=== PATIENT | male | born 1945 | race Caucasian/White ===

== ENCOUNTER 2023-08-15 13:39 | Inpatient (IN) | payer MEDICARE, OTHER ==
[~2023-08-15] VITALS: Ht 162.6 cm; Wt 93.4 kg
[2023-08-15] MEDS ORDERED: CEFTRIAXONE 1GM BAG (ER ONLY) 50 ML IV ONE ×2 (14:58→15:00)
[2023-08-15] MEDS ORDERED: VANCOMYCIN 1 GM /D5W 250 ML PB IV ONE (14:59)
[2023-08-15] MEDS ORDERED: IPRATROPIUM NEB FS 0.5 MG/2.5 ML AMPUL.NEB NEB ONE ×2 (15:00→17:00)
[2023-08-15] MEDS ORDERED: VANCOMYCIN 1 GM in IV D5W 250 ML IV ONE (15:00)
[2023-08-15] MEDS ORDERED: ALBUTEROL FS 2.5 MG/3 ML VIAL.NEB NEB ONE ×2 (15:00→17:00)
[2023-08-15] MEDS ORDERED: IV NS 0.9% 1,000 ML BAG IV ONE (15:00)
[2023-08-15] MEDS ORDERED: ALBUTEROL FS 2.5 MG/3 ML VIAL.NEB ONE ×2 (15:06→18:00)
[2023-08-15] MEDS ORDERED: IPRATROPIUM NEB FS 0.5 MG/2.5 ML AMPUL.NEB ONE ×2 (15:06→18:00)
[2023-08-15 15:12] VITALS: O2SAT 97
[2023-08-15 15:15] LABS: BASOPHILS % (AUTO) 0.5 % (0.0-2.0); EOSINOPHILS % (AUTO) 0.2 % (0.0-6.0); HEMATOCRIT 47 % (39-51); HEMOGLOBIN 15.5 g/dL (13.5-17.5); LYMPHOCYTES # (AUTO) 1.4 K/uL (0.8-4.8); LYMPHOCYTES % (AUTO) 17.6 % (20.0-44.0); MEAN CORPUSCULAR HEMOGLOBIN 32 PG (26.0-33.0); MEAN CORPUSCULAR HGB CONC 33 g/dl (31.0-36.0); MEAN CORPUSCULAR VOLUME 96 fL (80-96); MONOCYTES # (AUTO) 0.8 K/uL (0.1-1.30); MONOCYTES % (AUTO) 9.6 % (2.0-12.0); NEUTROPHILS # (AUTO) 5.9 K/uL (1.8-8.9); NEUTROPHILS % (AUTO) 72.1 % (43.0-81.0); PLATELET COUNT (AUTO) 243 K/uL (150-450); RED BLOOD CELL COUNT(AUTO) 4.88 MIL/uL (4.5-6.0); RED CELL DISTRIBUTION WIDTH 13.8 % (11.5-15.0); WHITE BLOOD COUNT (AUTO) 8.2 K/uL (4.3-11.0)
[2023-08-15 15:23] VITALS: O2SAT 98
[2023-08-15] MEDS ORDERED: THEO300T46 PO (15:27)
[2023-08-15] MEDS ORDERED: DOCU100C36 PO (15:27)
[2023-08-15] MEDS ORDERED: ASPI-1169 PO (15:27)
[2023-08-15] MEDS ORDERED: MONT10TA22 PO (15:27)
[2023-08-15] MEDS ORDERED: ALBU18HF2 IH (15:27)
[2023-08-15] MEDS ORDERED: GABA300C PO (15:27)
[2023-08-15] MEDS ORDERED: CYAN500T9 PO (15:27)
[2023-08-15] MEDS ORDERED: FLUT1BLS6 IH (15:27)
[2023-08-15 15:30] LABS: CALCIUM, SERUM 8.9 mg/dL (8.5-10.1); CARBON DIOXIDE 30 mmol/L (21-32); CHLORIDE 101 mmol/L (98-107); CREATININE 1.1 mg/dL (0.6-1.3); GLUCOSE 115 mg/dL (74-106); POTASSIUM 4.4 mmol/L (3.5-5.1); SODIUM SERUM 137 mmol/L (136-145); UREA NITROGEN, BLOOD 13 mg/dL (7-18)
[2023-08-15 15:33] LABS: INR 0.99 (0.91-1.10); PARTIAL THROMBOPLASTIN TIME 32.5 SEC (24.3-34.3); PROTHROMBIN TIME 10.5 SECS (9.2-11.1)
[2023-08-15 15:36] LABS: ALANINE AMINOTRANSFERASE 20 U/L (12-78); ALBUMIN 3.6 g/dL (3.4-5.0); ALKALINE PHOSPHATASE 71 U/L (46-116); ASPARTATE AMINOTRANSFERASE 14 U/L (15-37); BILIRUBIN,DIRECT 0.1 mg/dL (0.0-0.2); BILIRUBIN,TOTAL 0.4 mg/dL (0.2-1.0); TOTAL PROTEIN, SERUM 8.1 g/dL (6.4-8.2)
[2023-08-15 15:50] LABS: LACTIC ACID 0.9 mmol/L (0.4-2.0)
[2023-08-15 16:45] LABS: APPEARANCE,URINE CLEAR (CLEAR); BILIRUBIN,URINE NEGATIVE (NEGATIVE); BLOOD, URINE NEGATIVE Ery/uL (NEGATIVE); COLOR,URINE YELLOW (YELLOW); KETONES,URINE NEGATIVE (NEGATIVE); LEUKOCYTE ESTERASE ,URINE NEGATIVE (NEGATIVE); NITRITE, URINE NEGATIVE (NEGATIVE); PH,URINE 5.5 (5.0-8.0); PROTEIN,URINE TRACE mg/dl (NEGATIVE); UGLUCOSE NEGATIVE (NEGATIVE); UROBILINOGEN,URINE 0.2 EU/dL (0.2)
[2023-08-15 16:57] LABS: ADD URINE CULTURE NO; BACTERIA,URINE None seen /HPF (None Seen); MUCUS,URINE Few /LPF (None Seen); RBC,URINE 0-2 /HPF (0-2); SQUAMOUS EPITHELIAL CELL,UR 0-2 /HPF (None Seen); WBC,URINE 0-2 /HPF (0-3)
[2023-08-15] MEDS: LEVOFLOXACIN 500 MG /D5W 100ML 500 MG in PREMIX 1 EA IV SCH (17:00)
[2023-08-15] MEDS ORDERED: ACETAMINOPHEN 325 MG TABLET PO PRN (17:00)
[2023-08-15] MEDS ORDERED: MAGNESIUM HYDROXIDE 30 ML UDC PO PRN (17:00)
[2023-08-15] MEDS ORDERED: ONDANSETRON HCL/PF 4 MG/2 ML VIAL IVP PRN ×2 (17:00→19:00)
[2023-08-15] MEDS ORDERED: IPRATROPIUM NEB FS 0.5 MG/2.5 ML AMPUL.NEB NEB PRN (17:00)
[2023-08-15] MEDS ORDERED: Z GUARD REMEDY 4 OZ OINT TP PRN (17:00)
[2023-08-15] MEDS ORDERED: ZOLPIDEM TARTRATE 5 MG TABLET PO PRN (17:00)
[2023-08-15] MEDS ORDERED: ALBUTEROL FS 2.5 MG/3 ML VIAL.NEB NEB PRN (17:00)
[2023-08-15] MEDS ORDERED: MAG HYDROX/AL HYDROX/SIMETH 30 ML UDC PO PRN (17:00)
[2023-08-15] MEDS ORDERED: LEVOFLOXACIN 500 MG /D5W 100ML 100 ML IV ONE (17:53)
[2023-08-15 18:00] VITALS: O2SAT 97
[2023-08-15 18:15] VITALS: O2SAT 99
[2023-08-15] MEDS: ENOXAPARIN SODIUM 40 MG/0.4 ML DISP.SYRIN SQ SCH (19:00)
[2023-08-15] MEDS ORDERED: ENOXAPARIN SODIUM 40 MG/0.4 ML DISP.SYRIN SQ ONE (19:03)
[2023-08-15] MEDS: GABAPENTIN 300 MG CAPSULE PO SCH (21:31)
[2023-08-15] MEDS: methylPREDNISolone SOD SUCC 40 MG/ML VIAL IV SCH (21:31)
[2023-08-16] MEDS: methylPREDNISolone SOD SUCC 40 MG/ML VIAL IV SCH ×4 (05:19→21:30)
[2023-08-16 05:48] VITALS: O2SAT 99
[2023-08-16 06:19] VITALS: O2SAT 99
[2023-08-16 06:58] LABS: BASOPHILS % (AUTO) 0.2 % (0.0-2.0); HEMATOCRIT 43 % (39-51); HEMOGLOBIN 14.4 g/dL (13.5-17.5); LYMPHOCYTES % (AUTO) 21.7 % (20.0-44.0); MEAN CORPUSCULAR HEMOGLOBIN 33 PG (26.0-33.0); MEAN CORPUSCULAR HGB CONC 34 g/dl (31.0-36.0); MEAN CORPUSCULAR VOLUME 96 fL (80-96); MONOCYTES # (AUTO) 0.1 K/uL (0.1-1.30); MONOCYTES % (AUTO) 1.3 % (2.0-12.0); NEUTROPHILS # (AUTO) 3.5 K/uL (1.8-8.9); NEUTROPHILS % (AUTO) 76.8 % (43.0-81.0); PLATELET COUNT (AUTO) 207 K/uL (150-450); RED BLOOD CELL COUNT(AUTO) 4.44 MIL/uL (4.5-6.0); RED CELL DISTRIBUTION WIDTH 13.6 % (11.5-15.0); WHITE BLOOD COUNT (AUTO) 4.6 K/uL (4.3-11.0)
[2023-08-16 07:21] LABS: CALCIUM, SERUM 8.7 mg/dL (8.5-10.1); CREATININE 1.2 mg/dL (0.6-1.3); PHOSPHORUS 3.8 mg/dL (2.5-4.9); POTASSIUM 4.8 mmol/L (3.5-5.1)
[2023-08-16 08:00] VITALS: BP 115/55; TEMP 98.2; O2SAT 95
[2023-08-16] MEDS ORDERED: THEOPHYLLINE ANHYDROUS 100 MG CAP.ER.24H PO SCH (09:00)
[2023-08-16 09:13] LABS: ABG BASE EXCESS -0.6 mmol/L; ABG OXYGEN SATURATION 98.9 % (92.0-98.5); ABG PCO2 68.2 mmHg (35.0-45.0); ABG PH 7.243 (7.350-7.450); ABG TOTAL HEMOGLOBIN 15.6 G/dL (13.5-18.0); AaDO2 114.8 mmHg; MetHb 0.3 % (0.0-1.5); O2Hb 97.6 % (94.0-97.0); SITE, ABG Left Radial; VENT MODE, BG mask 8LPM
[2023-08-16] MEDS: PANTOPRAZOLE 40 MG VIAL IV SCH (10:11)
[2023-08-16] MEDS: MONTELUKAST SODIUM (10MG) 10 MG TABLET PO SCH (10:11)
[2023-08-16] MEDS: ASPIRIN 81 MG TAB.CHEW PO SCH (10:11)
[2023-08-16] MEDS: DOCUSATE SODIUM 100 MG CAPSULE PO SCH (10:11)
[2023-08-16] MEDS: CYANOCOBALAMIN 500 MCG TABLET PO SCH (10:12)
[2023-08-16 12:00] VITALS: BP 114/64; TEMP 98.5; O2SAT 96
[2023-08-16] MEDS: THEOPHYLLINE ANHYDROUS 80 MG/15 ML UDC PO SCH ×2 (13:17→21:31)
[2023-08-16 16:00] VITALS: BP 116/68; TEMP 97.8; O2SAT 96
[2023-08-16] MEDS ORDERED: IV NS 0.9% 250 ML IV ONE (16:32)
[2023-08-16] MEDS ORDERED: IOHEXOL-350 100 ML VIAL IV ONE (16:32)
[2023-08-16] MEDS: LEVOFLOXACIN 500 MG /D5W 100ML 500 MG in PREMIX 1 EA IV SCH (18:52)
[2023-08-16 20:00] VITALS: BP 116/70; TEMP 97.5; O2SAT 96
[2023-08-16] MEDS: GABAPENTIN 300 MG CAPSULE PO SCH (21:31)
[2023-08-16] MEDS: ENOXAPARIN SODIUM 40 MG/0.4 ML DISP.SYRIN SQ SCH (21:32)
[2023-08-17] VITALS: BP 90/54; TEMP 97.7; O2SAT 96
[2023-08-17 04:00] VITALS: BP 124/72; TEMP 97.9; O2SAT 99
[2023-08-17] MEDS: methylPREDNISolone SOD SUCC 40 MG/ML VIAL IV SCH ×3 (04:26→21:22)
[2023-08-17 08:00] VITALS: BP 117/59; TEMP 97.5; O2SAT 99
[2023-08-17 08:02] LABS: ABG BASE EXCESS -1.4 mmol/L; ABG OXYGEN SATURATION 99.1 % (92.0-98.5); ABG PH 7.242 (7.350-7.450); ABG PO2 256.2 mmHg (75.0-100.0); ABG TOTAL HEMOGLOBIN 15.6 G/dL (13.5-18.0); COHb 0.4 % (0.5-1.5); MetHb 0.3 % (0.0-1.5); O2Hb 98.4 % (94.0-97.0); SITE, ABG Right Radial; VENT MODE, BG 18/8 20 60%
[2023-08-17 08:02] LABS: ABG BASE EXCESS 0.5 mmol/L; ABG OXYGEN SATURATION 92.7 % (92.0-98.5); ABG PCO2 67.5 mmHg (35.0-45.0); ABG PO2 71.8 mmHg (75.0-100.0); ABG TOTAL HEMOGLOBIN 15.5 G/dL (13.5-18.0); AaDO2 135.8 mmHg; COHb 0.8 % (0.5-1.5); MetHb 0.3 % (0.0-1.5); O2Hb 91.7 % (94.0-97.0); SITE, ABG Right Radial; VENT MODE, BG 5 LPM NC
[2023-08-17 08:03] LABS: ABG BASE EXCESS 2.2 mmol/L; ABG OXYGEN SATURATION 95.8 % (92.0-98.5); ABG PCO2 53.5 mmHg (35.0-45.0); ABG PH 7.351 (7.350-7.450); ABG PO2 84.9 mmHg (75.0-100.0); ABG TOTAL HEMOGLOBIN 14.8 G/dL (13.5-18.0); AaDO2 102.5 mmHg; COHb 0.9 % (0.5-1.5); MetHb 0.2 % (0.0-1.5); O2Hb 94.7 % (94.0-97.0); SITE, ABG Right Radial
[2023-08-17] MEDS: THEOPHYLLINE ANHYDROUS 80 MG/15 ML UDC PO SCH ×2 (08:57→21:21)
[2023-08-17] MEDS: ASPIRIN 81 MG TAB.CHEW PO SCH (08:57)
[2023-08-17] MEDS: CYANOCOBALAMIN 500 MCG TABLET PO SCH (08:57)
[2023-08-17] MEDS: MONTELUKAST SODIUM (10MG) 10 MG TABLET PO SCH (08:57)
[2023-08-17] MEDS: DOCUSATE SODIUM 100 MG CAPSULE PO SCH (08:57)
[2023-08-17] MEDS: PANTOPRAZOLE 40 MG VIAL IV SCH (08:57)
[2023-08-17 12:00] VITALS: BP 110/52; TEMP 98.1; O2SAT 95
[2023-08-17] MEDS: GUAIFENESIN LA 600 MG TABLET.SA PO SCH ×2 (14:19→21:21)
[2023-08-17 16:00] VITALS: BP 110/63; TEMP 98.2; O2SAT 97
[2023-08-17] MEDS: LEVOFLOXACIN 500 MG /D5W 100ML 500 MG in PREMIX 1 EA IV SCH (17:09)
[2023-08-17 20:00] VITALS: BP 139/70; TEMP 98.2; O2SAT 98
[2023-08-17] MEDS ORDERED: FLUTICASONE INH SCH (20:00)
[2023-08-17] MEDS ORDERED: VILANTER INH SCH (20:00)
[2023-08-17] MEDS ORDERED: UMECLIDIN INH SCH (20:00)
[2023-08-17] MEDS: GABAPENTIN 300 MG CAPSULE PO SCH (21:21)
[2023-08-17] MEDS: ENOXAPARIN SODIUM 40 MG/0.4 ML DISP.SYRIN SQ SCH (21:23)
[2023-08-18] VITALS: BP 129/85; TEMP 98.2; O2SAT 99
[2023-08-18 04:00] VITALS: BP 137/75; TEMP 98; O2SAT 99
[2023-08-18] MEDS: methylPREDNISolone SOD SUCC 40 MG/ML VIAL IV SCH ×2 (04:32→12:14)
[2023-08-18 08:00] VITALS: BP 137/75; TEMP 97.5; O2SAT 99
[2023-08-18] MEDS: DOCUSATE SODIUM 100 MG CAPSULE PO SCH (08:44)
[2023-08-18] MEDS: CYANOCOBALAMIN 500 MCG TABLET PO SCH (08:44)
[2023-08-18] MEDS: ASPIRIN 81 MG TAB.CHEW PO SCH (08:44)
[2023-08-18] MEDS: GUAIFENESIN LA 600 MG TABLET.SA PO SCH (08:44)
[2023-08-18] MEDS: MONTELUKAST SODIUM (10MG) 10 MG TABLET PO SCH (08:45)
[2023-08-18] MEDS: THEOPHYLLINE ANHYDROUS 80 MG/15 ML UDC PO SCH (08:46)
[2023-08-18] MEDS ORDERED: PANTOPRAZOLE 40 MG/PACK PACK PO SCH (09:00)
[2023-08-18 12:00] VITALS: BP 145/75; TEMP 97.6; O2SAT 99
[2023-08-18] MEDS ORDERED: LEVO250T59 PO (12:32)
[2023-08-18] MEDS ORDERED: METH4TAB17 PO (12:32)
[2023-08-18] MEDS ORDERED: PRED50TA PO (12:33)
[2023-08-18 12:42] LABS: ABG BASE EXCESS 0.5 mmol/L; ABG OXYGEN SATURATION 94.3 % (92.0-98.5); ABG PCO2 53.7 mmHg (35.0-45.0); ABG PH 7.328 (7.350-7.450); ABG PO2 76.8 mmHg (75.0-100.0); ABG TOTAL HEMOGLOBIN 15.2 G/dL (13.5-18.0); AaDO2 88.5 mmHg; COHb 0.6 % (0.5-1.5); MetHb 0.2 % (0.0-1.5); O2Hb 93.5 % (94.0-97.0); SITE, ABG Right Radial; VENT MODE, BG 3LPM NC
[2023-08-18 16:00] VITALS: BP 139/76; TEMP 98.6; O2SAT 99
[2023-08-18] MEDS ORDERED: LEVOFLOXACIN (250MG) 250 MG TABLET PO SCH (17:00)
== END 2023-08-18 17:15 | disposition home health service (06) | DRG 190 ==
LOC: ER 13:46 → TRANSITION 17:51 → TELE1 19:13 → TELE-TD 08-16 11:23
PROVIDERS: ADMIT Nurse Practitioner Acute Care; ATTEND Internal Medicine
PROC: 5A09457 Assistance with Respiratory Ventilation, 24-96 Consecutive Hours, Continuous Positive Airway Pressure (ICD-10-PCS; principal; 2023-08-16)
DX: J44.1 Chronic obstructive pulmonary disease with (acute) exacerbation (principal); J96.21 Acute and chronic respiratory failure with hypoxia; J96.22 Acute and chronic respiratory failure with hypercapnia; E66.9 Obesity, unspecified; Z68.34 Body mass index [BMI] 34.0-34.9, adult; Z79.51 Long term (current) use of inhaled steroids; Z79.82 Long term (current) use of aspirin; Z79.899 Other long term (current) drug therapy; Z87.19 Personal history of other diseases of the digestive system; Z99.81 Dependence on supplemental oxygen; F17.210 Nicotine dependence, cigarettes, uncomplicated; K46.9 Unspecified abdominal hernia without obstruction or gangrene; I10 Essential (primary) hypertension; E78.5 Hyperlipidemia, unspecified; G47.33 Obstructive sleep apnea (adult) (pediatric)
CPT/HCPCS: 36415; 36600; 71045-TC; 80048-TC; 80076-TC; 81001; 82803-TC; 83605-TC; 83735-TC; 84100-TC; 84484-TC; 85025-TC; 85378-TC; 85730-TC; 87040-TC; 87086-TC; 94799-TC; A4216; A4223; C9113; G0378; J0696; J1650; J1956; J2920; J3370; J7050; J7060; Q9967